=== PATIENT | female | born 1985 | race Asian ===

== ENCOUNTER 2018-02-28 22:45 | Emergency (ER) | payer OTHER ==
[2018-02-28 22:54] VITALS: BP 91/57
[2018-02-28] MEDS ORDERED: TDAP ADULT 0.5 ML INJ (BOOSTRIX) IM ONE (23:07)
--- NOTE | 2018-02-28 23:07 | EDPHY ---
H & P Smoking Status: Never smoked Time Seen by Provider: 02/28/18 23:04 HPI/ROS: CHIEF COMPLAINT: Left knee laceration HISTORY OF PRESENT ILLNESS: 32-year-old female with up to-date tetanus in the ER via private vehicle with after she accidentally impacted a razor blade that her was holding when her hugged her. Occurred shortly before coming to the ER. No paresthesia. PHYSICAL EXAM (Prior to examination, patient consented to physical exam, hands were washed and my usual and customary physical exam procedures followed) 1) GENERAL: Well-developed, well-nourished, alert and oriented. Appears uncomfortable. 2) HEAD: Normocephalic 3) HEENT: sclera anicteric 4) LUNGS: Breathing comfortably. 5) SKIN: Left anterior knee overlying the patella 3 cm vertically-oriented superficial laceration. 6) MUSCULOSKELETAL: Patellar and quadriceps tendons appear to be grossly intact. There does not appear to be joint involvement. Doubt traumatic arthrotomy. (Sanjeev Ayon) Constitutional: Initial Vital Signs Temperature (C) 36.5 C 02/28/18 22:52 Heart Rate 69 02/28/18 22:52 Respiratory Rate 16 02/28/18 22:52 Blood Pressure 91/57 L 02/28/18 22:52 O2 Sat (%) 94 02/28/18 22:52 O2 Delivery Mode Room Air Allergies/Adverse Reactions: No Known Allergies Allergy (Unverified 02/28/18 22:54) Home Medications: Medication Instructions Recorded NK [No Known Home Meds] 02/28/18 MDM/Departure - [facility] Procedures: Procedure: Laceration repair. I explained the indications, risks and benefits for both laceration repair and anesthetic administration. Verbal consent was obtained from the patient. The laceration on the left anterior patella was anesthetized using 0.5% bupivicaine with epinephrine. After anesthetic administered the patient was observed for a period of time and had no apparent adverse effects. The wound was cleaned, prepped, draped in normal sterile fashion and explored to its base. No foreign body seen, no foreign bodies palpated. There were no deep structures involved. No tendon injury was identified. The wound was repaired with 7 simple interrupted 4 0 Prolene sutures . The wound repair was complex. The procedure was performed by myself. Patient has been informed that scarring will occur, although efforts have been made to minimize this. (Sanjeev Ayon) ED Course/Re-evaluation: Doubt traumatic arthrotomy of the left knee joint. Wound has been closed, bulky dressing applied. Encouraged not to bend the knee. This was a non intentional injury. Usual and customary wound precautions instructions provided. I saw this patient independently based on established practice protocols. Care of patient under supervision of secondary supervising physician Dr Og . (Sanjeev Ayon) PHYSICIAN DOCUMENTATION: The patient was evaluated and managed by the Physician Production Statistical Clerk. My co- signature indicates that I have reviewed this chart and I agree with the findings and plan of care as documented. I am the secondary supervising physician. (Flavia Og) - Depart Disposition: Home, Routine, Self-Care Clinical Impression: Laceration of knee Condition: Good Instructions: Care For Your Stitches (ED), Laceration (ED) Additional Instructions: Return to the ER if you develop redness, swelling, discharge, warmth to the wound, red streaks going up your leg, or any other symptoms that concern you. Referrals: Return, to the ER in 14 days for suture removal [Other] - As per Instructions
== END 2018-02-28 23:34 | disposition home or self-care (01) ==
PROC: 0HQLXZZ Repair Left Lower Leg Skin, External Approach (ICD-10-PCS; principal; 2018-02-28)
DX: S81.012A Laceration without foreign body, left knee, initial encounter (principal); W26.8XXA Contact with other sharp object(s), not elsewhere classified, initial encounter

== ENCOUNTER → 2018-09-12 | Outpatient (CLI) | payer OTHER | LOC: BMCIMAGING 11:12 | PROVIDERS: ATTEND Family Medicine | DX: M79.89 Other specified soft tissue disorders (principal) ==